=== PATIENT | male | born 1965 | race Caucasian/White ===

== ENCOUNTER 2017-03-26 05:57 | Day surgery (SDC) | payer OTHER ==
[2017-03-26] MEDS ORDERED: Famotidine IV* 10 MG/ML 2 ML (20 mg) IV ONE (06:00)
[2017-03-26] MEDS ORDERED: Dexamethasone IV* 4 MG/ML 1 ML (4 MG) IV SLOW PU ONE (06:00)
[2017-03-26] MEDS ORDERED: ceFAZolin 2 GM PREMIX(*) 2 GM/50 ML BAG IVPB ONE ×2 (06:02→11:55)
[2017-03-26] MEDS ORDERED: Dexamethasone IV* 4 MG/ML 1 ML (4 MG) ONE (06:02)
[2017-03-26] MEDS ORDERED: Famotidine IV* 10 MG/ML 2 ML (20 mg) ONE (06:02)
[2017-03-26] MEDS ORDERED: EPINEPHrine AMP 1 MG/ML ONE (06:59)
[2017-03-26] MEDS ORDERED: Midazolam* 1 MG/ML 5 ML VIAL (5 MG) ONE (07:06)
[2017-03-26] MEDS ORDERED: fentaNYL* 50 MCG/ML 2 ML VIAL (100 MCG VIAL) ONE (07:06)
[2017-03-26] MEDS ORDERED: Atracurium* 10 MG/ML 10 ML VIAL ONE (07:06)
[2017-03-26] MEDS ORDERED: Ketorolac INJ* 30 MG/ML 1 ML VIAL ONE (07:07)
[2017-03-26] MEDS ORDERED: Ondansetron INJ* 2 MG/ML VIAL ONE (07:07)
[2017-03-26] MEDS ORDERED: Propofol* 10 MG/ML 20 ML BTL IV PUSH ONE (07:07)
[2017-03-26] MEDS ORDERED: ROPIVACAINE 5 MG/ML 30 ML BTL (0.5%) ONE (07:07)
[2017-03-26] MEDS ORDERED: Levalbuterol 0.63MG/3ML NEB INH ONE (07:23)
[2017-03-26] MEDS ORDERED: Levalbuterol 1.25MG/0.5ML NEB ONE (07:25)
[2017-03-26] MEDS ORDERED: Bupivacaine 0.5% W/EPI SDV* 30 ML VIAL ONE (07:39)
[2017-03-26] MEDS ORDERED: Glycopyrrolate IV* 0.2 MG/ML 1 ML VIAL ONE (08:21)
[2017-03-26] MEDS ORDERED: Ondansetron INJ* 2 MG/ML VIAL IV PRN (09:07)
[2017-03-26] MEDS ORDERED: fentaNYL* 50 MCG/ML 2 ML VIAL (100 MCG VIAL) IV PRN (09:07)
[2017-03-26] MEDS ORDERED: DiMENhydriNATE IV* 50 MG/ML VIAL IV PUSH PRN (09:07)
[2017-03-26] MEDS ORDERED: oxyCODONE/Acetamin 5/325 MG* TAB PO PRN (09:07)
[2017-03-26] MEDS ORDERED: HYDROmorphone* 1 MG/ML 1 ML SYR IV PRN (09:07)
[2017-03-26] MEDS ORDERED: Atropine 1MG/ML INJ* 1 ML VIAL ONE (09:39)
[2017-03-26] MEDS ORDERED: Phenylephrine INJ* 10 MG/ML 1 ML VIAL (10 MG) ONE (10:29)
[2017-03-26 13:29] VITALS: BP 127/81
--- NOTE | 2017-03-27 03:51 | OP ---
DATE OF OPERATION: 03/26/17 - [facility] DATE OF : 69 ATTENDING SURGEON: Terrance Diaz MD REMEDIAL READING TEACHER: SHAN Regalado ANESTHESIOLOGIST: Ayush Tavares MD ANESTHESIA: General anesthesia, interscalene block, regional anesthesia, local anesthesia. PRE-OP DIAGNOSES: 1. Right shoulder rotator cuff tear, supraspinatus, subscapularis. 2. Right shoulder subacromial impingement. 3. Right shoulder AC joint arthritis. 4. Right shoulder biceps subluxation and tendinosis. 5. Right shoulder superior labral tear. 6. Right shoulder mild glenohumeral joint osteoarthritis. POST-OP DIAGNOSES: 1. Right shoulder rotator cuff tear, supraspinatus, subscapularis. 2. Right shoulder subacromial impingement. 3. Right shoulder AC joint arthritis. 4. Right shoulder biceps subluxation and tendinosis. 5. Right shoulder superior labral tear. 6. Right shoulder mild glenohumeral joint osteoarthritis. OPERATIVE PROCEDURE: 1. Right shoulder arthroscopic rotator cuff repair, supraspinatus. 2. Right shoulder open rotator cuff repair, chronic, subscapularis tendon. 3. Right shoulder arthroscopic subacromial decompression. 4. Right shoulder arthroscopic distal clavicle resection. 5. Right shoulder arthroscopic limited debridement including debridement of superior labrum. 6. Right shoulder open proximal biceps tenodesis. ANTIBIOSIS: 2 g Ancef IV. IV FLUIDS: See Anesthesia note. COMPLICATIONS: None. SPECIMEN: None. EBL: 25 cc. IMPLANTS: Mitek Healix triple-loaded 5.5 mm rotator cuff anchor x1. Mitek Healix 5.5 mm knotless anchor x1. Mitek Healix 4.5 mm double-loaded anchors x3. Mitek Healix knotless 4.75 mm anchor x1. INDICATIONS FOR PROCEDURE: The patient is a 52-year-old man, a right-hand dominant prisoner, who presented to me in clinic with 2-1/2 years of right shoulder pain that started with a very specific injury while lifting weights. The patient was lifting a dumbbell doing bench-press. He brought the dumbbell towards his chest and felt and heard three different pops. Subsequently, he had pain and weakness. For the last 2-1/2 years, he has had significant right shoulder pain with activities of daily living as well as with sleep. The patient has been treated with ibuprofen. He has also been treated with cortisone subacromial without improvement by an outside physician. 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 He had a history of extensive handball playing prior to that injury when he was a much younger man. No prior history of injury to that right shoulder. On exam, the patient is thin and muscular. Passive forward flexion to 180 degrees, external rotation to 90, and internal rotation to 65 degrees. The patient had active forward flexion to 180 degrees as well. Positive pain and weakness with supraspinatus stress testing. Positive pain and severe weakness with subscapularis stress testing, more so with the belly press and the bear- hug maneuver. Positive trace pain with external rotator stress testing. Positive Neer's and Smith. Positive AC joint tenderness to palpation and tenderness to the bicipital groove. Positive Speeds test for pain. X-rays from November 04 demonstrated narrowing of the acromiohumeral distance to 5 mm and mild glenohumeral joint space narrowing without osteophytes. MRI, somewhat dated, from 8 months prior to procedure, on 07/31/16, demonstrated an acromiohumeral distance of 9 mm. Demonstrated a full-thickness supraspinatus rotator cuff tendon tear, retracted to just lateral to the apex of the humeral head with the tendon. However, the musculotendinous junction was at the level of the glenoid. There was also a full-thickness or high-grade partial thickness retracted tear of the subscapularis, read by me, but not appreciated by reading radiologist from an outside facility. That tear was retracted significantly with the musculotendinous junction medial with the glenoid. I saw the biceps is significantly subluxed down at the bicipital groove, although outside radiologist described it as in the groove. Also read significant synovitis of the biceps tendon. There was only a minimal fat infiltration of the upper subscapularis and none of the supraspinatus. AC joint showed significant joint space narrowing and spurs about and on either side. There was some articular cartilage wear of the glenohumeral joint and the acromiohumeral distance was measured at 9 mm by me. The patient opted for surgical management. We discussed benefits, risks, and possible complications including re-rupture of his rotator cuff tendons. I discussed that I would repair his supraspinatus arthroscopically and the subscapularis either arthroscopically or open. Given the chronicity of his tear and the amount of retraction and the patient's young age, I was biased towards an open repair preoperatively. DESCRIPTION OF PROCEDURE: Preoperative written consent was obtained. Operative extremity was marked in preoperative holding. In preoperative holding room, Anesthesia performed a regional interscalene anesthetic block. The patient was taken back to the operating room and placed supine on operating room table. The patient was sedated and intubated. The patient was turned into a lateral decubitus position with the right side up. All bony prominences padded. A lux bag was insufflated. Arm was placed in 15 pounds of traction and this was briefly increased to 20 pounds early in the procedure, but were turned to 15 pounds when it was clear there was no difference in the glenohumeral joint space. I had tried 20 pounds before entering the shoulder because to my palpation through the skin, the glenohumeral joint felt narrow. The right shoulder was prepped and draped. A surgical time-out was performed. The right glenohumeral joint was entered from posterior with a spinal needle. I did not insufflate with fluid as I often do. I then entered the posterior glenohumeral joint with blunt trocar and cannula. Arthroscope entered joint. I began my diagnostic arthroscopy. There was some thinning of the articular cartilage of the glenoid in the humeral head, but no unstable cartilage lesions with the exception of I noted some softening of the cartilage at the posterosuperior rim of the glenoid. There was a clear large supraspinatus rotator cuff tear as the humeral head and greater tuberosity footprint was bulb. The biceps was very tendinotic and had a shredded appearance and there was a clear unstable superior labral tear. There was also a clear subscapularis tear, retracted. Looked as though there might be several fibers at the inferior most subscapularis still intact at its insertion. An anterior glenohumeral joint portal was established under direct visualization. Through the anterior glenohumeral joint space portal, I entered an arthroscopic shaver and I used that to debride some synovitic tissue and improve visualization of the labrum circumferentially, the biceps tendon, and the two torn rotator cuff tendons. I then entered a grasper through the anterior portal. The subscapularis was not especially mobile. I then re-entered the arthroscopic shaver and debrided deep and superficial to the subscapularis tendon remaining aware of all relevant anatomy. This loosened up that tendon slightly, but the tendon could not quite be brought back to the footprint convincingly using that grasper. Therefore, I decided that I would go ahead and do the subscapularis repair open rather than arthroscopically. Given his young age, I figured that a double-row subscapularis repair would be more gonzalez than a single row arthroscopically of two anchors. Next, using arthroscopic scissors, I cut the proximal biceps long head tendon just of its origin of the superior labrum. The long head of the biceps retracted. I used arthroscopic shaver to debride the superior labrum where there was a clear superior labral tear with abnormal lift-off of the superior glenoid as well as significant amounts of frayed tissue. No loose bodies in the joint. I removed instruments and fluids from the glenohumeral joint. I entered subacromial space, posterior than anterior. I placed a 7-mm Mitek plastic cannula anterior and put my fluid anterior. I visualized crescent shaped supraspinatus tear, full width. I created lateral subacromial joint portal under direct visualization. I entered arthroscopic shaver and debrided bursitic tissue superior to the rotator cuff as well as in the gutters. I studied rotator cuff tear of the supraspinatus. [place] shape. There was an interlaminar split with an inferior lamina of the tear retracted more medially. I debrided the edges of the rotator cuff tendon as well as the footprint of the greater tuberosity. I used a svetlana to prepare the bone of the greater tuberosity footprint of the supraspinatus. I created a posterolateral portal that I used for much of my visualization throughout the case. I performed a subacromial decompression. I removed approximately 5 mm of the inferior aspect of the anterior hook of the acromion. I was careful not to violate the coracoacromial ligament. Given that the patient has a large rotator cuff tear now, I worry about the few re-tears of cuff in the future, the possibility of humeral escape, so I did not want to violate that ligament in this patient. We turned to the rotator cuff tendon tear, supraspinatus. Using a EMERALD passer, I placed a traction stitch, #2 FiberWire in the inferior lamina of the supraspinatus rotator cuff tendon. I pulled that out an accessory lateral portal. Throughout the rotator cuff repair, I had an process assistant pulling traction on the inferior lamina whenever I placed a stitch to make sure that I was repairing both laminae and they were at the appropriate length. I next measured the length of the defect on the humeral head. The length was between 10 mm and 15 mm. It seemed appropriate for a single anchor repair, triple- loaded. I next created a superolateral portal and punched and then placed a triple-loaded 5.5 mm Healix anchor in the medial aspect of the rotator cuff footprint. I then created a new lateral portal in the appropriate location to do nice passage with an EXPRESSEW device. I placed a 7-mm plastic cannula in that lateral portal. Using the EXPRESSEW device, I passed, but did not tie 3 horizontal mattress stitches from my suture anchor. I next tied all of those knots. This produced an excellent repair. It spanned the length of the defect of the footprint, anterior to posterior. However, there was some rotator cuff still posterior as well as possibly some fascia, but there was still some rotator cuff that had not been opposed to bone, although it was lying over some intact infraspinatus. I therefore decided to pull this tissue down and get better apposition to bone more anteriorly with the tissue lateral to my medial row with a single lateral row anchor. I cleared off the lateral aspect of the footprint. I placed a lateral row knotless anchor. I used 3 sutures from my 3 horizontal mattress stitches and placed those with a knotless anchor laterally. The 3 sutures from that anchor was used to place the horizontal mattress stitch in the posterior most rotator cuff, nicely opposing that. Very solid repair obtained. Next, I assessed the stability of this repair with arthroscopic probe as well as with rotating the humerus. I next visualized the AC joint as well as the anterior hook of the acromion. I removed some additional anterior hook of the acromion, an additional, perhaps 4- mm of the anterior most hook of the acromion. I next visualized the AC joint and then debrided 8-mm of the distal limb of the clavicle working from anterior. Arthroscopic component of the case was complete. Removed fluid and instruments from the subacromial space. I closed skin with a [id number] and 12 stitches using nylon 4-0 suture. I placed a large Tegaderm over all of the arthroscopic incisions. I took down drapes. I removed longitudinal traction from the right upper extremity. I placed the patient in the supine position. I placed the patient in the beach chair position proximally 40 degrees compared to the horizontal with the upper body. I secured the torso to the bed. I re-prepped and draped the right shoulder with the Tegaderm removed for the prep. New surgical time- out performed. I performed an open deltopectoral approach through the marked skin between several centimeters distal to the coracoid process and 4 cm proximal to the insertion of the deltoid, that level on the anterior aspect of the upper arm. I incised skin and subcutaneous tissue with a superficial and then a deep knife. Next, after retractors had been placed, I dissected with scissors and I picked up down to the fascial layer overlying the deltoid and the pectoral muscles. I identified the cephalic vein. The cephalic vein wanted to stay with the deltoid. With finger dissection, I opened up this interval. A minimum of bleeding. I freed up subdeltoid adhesions, mostly distal trying to stay away from my rotator cuff repair proximally. I placed deltoid retractor, Mellissa. I placed an appendix-type Juarez retractor deep to the pectoralis muscle. I visualized clavipectoral fascia overlying the subscapularis. I incised this. I gently retracted the conjoint tendon and muscles. I removed some clavipectoral fascia from the superficial layer of the subscapularis tendon. I visualized subscapularis tendon. I placed 2 traction stitches, #2 FiberWire. I retracted lateral and freed this tendon up, superficial, deep, and superior, with my fingers, making sure not to go too far medially, especially superficial. I cleaned off the lesser tuberosity subscapularis footprint with a rongeur and file and curette. I next placed a 2 medial row double-loaded 4.5 mm Healix anchors. Using a free needle, I passed horizontal mattress stitches into the subscapularis tendon. I tied these. Next, I placed a lateral row inferior double-loaded anchor, same size. I then placed my superolateral row anchor and I made that a knotless anchor and I used suture from the medial lateral and placed it in there. This led to a substantive repair with a large footprint for healing of the subscapularis tendon. I tried to visualize my supraspinatus repair but even with maximal internal rotation, I could not quite visualize it. My finger could touch humerus through the rotator interval. Previously, prior to my subscapularis repair, while I was approaching the anterior aspect of the humerus, just after removing clavipectoral fascia, I had incised down at the level of the bicipital groove through capsule, identifying the biceps and removing it from the wound. At this point, after the rotator cuff repair, I placed two [id number] stitches of the proximal biceps tendon through the pec major tendon near its insertion with 0 Ti-Cron permanent suture, performing a proximal biceps tenodesis in this location. I pulled the biceps taut and had the elbow flexed when I did this to get the correct length and tension relationship. I removed excess proximal biceps tendon after performing the tenodesis. Irrigation. A closure of the deltopectoral interval with a running stitch using Ti- Cron 0 suture. A closure of the subcutaneous layer with buried simple stitches using Vicryl 3-0 suture. Closure of the skin with running stitches using nylon 4-0 suture. 4x4s and a Tegaderm over the large open incision, Xeroform as well. Xeroform, 4x4's, ABDs, and foam tape over the arthroscopic incisions. Sling and abduction pillow. Cooling unit. The patient was awakened, extubated, and brought to the PACU. It should be noted 10 cc of 0.5% Marcaine with epinephrine were infused into the subcutaneous tissue about the open incision prior and during closure. DISPOSITION: The patient will be discharged when medically stable back to his alf. He will follow up in 10 to 14 days postoperatively, with Percocet as needed for pain, Keflex for 7 days because of the open incision, and aspirin 325 mg p.o. b.i.d. for 4 weeks rather than my routine 2 weeks because the day of surgery, the patient mentioned that his mom has a family history of blood clots in that his mother has an IVC filter because she has had multiple episodes of blood clots. The patient himself has no personal history of blood clots. [id number]/[facility] #: [id number] JOSE C
== END 2017-03-26 13:33 ==
LOC: OR 05:57
PROVIDERS: ATTEND Orthopaedic Surgery
DX: M75.101 Unspecified rotator cuff tear or rupture of right shoulder, not specified as traumatic (principal); M75.41 Impingement syndrome of right shoulder; M19.011 Primary osteoarthritis, right shoulder; M75.21 Bicipital tendinitis, right shoulder; F17.200 Nicotine dependence, unspecified, uncomplicated
CPT/HCPCS: A9270-GY; J0171; J0461; J0690; J1100; J1885; J2250; J2405; J2704; J2795; J3010